=== PATIENT | male | born 1950 | race Caucasian/White ===

== ENCOUNTER → 2021-05-21 | Outpatient (CLI) | payer MEDICARE, OTHER ==
--- NOTE | 2021-05-21 11:28 | Diagnostic Imaging Report ---
INDICATION: Shortness of breath EXAMINATION: Two-view chest 05/21/2021 FINDINGS: There is a marked dextroconvex scoliosis of the thoracic spine. The heart is unremarkable. There is atelectasis at the left lung base with infiltrate not excluded; correlate with symptoms. Remaining lungs clear. No effusions. No pneumothorax. Pulmonary vasculature unremarkable. IMPRESSION: 1. Atelectasis versus infiltrate at the left lung base; correlate with symptoms. Otherwise chronic findings as above. Dictated by: Dictated on workstation # [id number]
== END ==
LOC: RAD 11:00
PROVIDERS: ATTEND Nurse Practitioner Family
DX: R06.02 Shortness of breath (principal)
CPT/HCPCS: 71046

== ENCOUNTER → 2021-06-04 | Outpatient (CLI) | payer MEDICARE, OTHER ==
--- NOTE | 2021-06-04 12:37 | Diagnostic Imaging Report ---
INDICATION: Dyspnea and pneumonia. TECHNIQUE/COMPARISON: PA and lateral views of the chest were obtained with comparison made to the study of 05/21/2021. FINDINGS: The overall heart size and pulmonary vascularity remain within normal limits. There is mild perihilar atelectasis and/or pneumonitis. No consolidation, pneumothorax, or definite pleural fluid is seen. Overall, there has been no adverse change. Thoracic spinal deformity is again noted. IMPRESSION: Perihilar atelectasis and/or pneumonitis without significant change from the previous study. Dictated by: Dictated on workstation # [id number]
== END ==
LOC: RAD
PROVIDERS: ATTEND Nurse Practitioner Family
DX: J18.9 Pneumonia, unspecified organism (principal)
CPT/HCPCS: 71046

== ENCOUNTER → 2021-06-06 | Outpatient (CLI) | payer MEDICARE, OTHER ==
[~2021-06-06] MED LIST: CATHETER FLUSH 10 ML SYR IV PRN; HOLD METFORMIN - RECEIVED CONTRAST 20 ML VIAL IV SCH; IOHEXOL 350 MG/ML 100 ML (OMNIPAQUE 350) VIAL IV ONE; NS 100 ML (IVPB) BAG IV ONE
--- NOTE | 2021-06-06 10:11 | Diagnostic Imaging Report ---
PROCEDURE: CT chest with contrast only. TECHNIQUE: Multiple contiguous axial images were obtained through the chest after administration of intravenous contrast. Auto Exposure Controls were utilized during the CT exam to meet ALARA standards for radiation dose reduction. DATE: June 06, 2021. COMPARISON: Chest radiograph June 04, 2021. May 21, 2021. INDICATION: 70-year-old male, evaluation of pulmonary nodule seen on radiographs. FINDINGS: There is no identified pulmonary nodule. There is no lung mass. There is no focal airspace consolidation. There is no pneumothorax. There is no pleural effusion. The central airways are patent. The heart is not enlarged. There is no pericardial effusion. There are atherosclerotic calcifications. There is no identified pulmonary embolus. There is no identified abnormally enlarged mediastinal, hilar, or axillary lymph node meeting CT size criteria for adenopathy. There is surgical absence of the gallbladder. There are nonobstructing renal stones bilaterally. There is scoliosis. There are multilevel degenerative changes of the spine. There is no identified acute bony abnormality. IMPRESSION: CT CHEST. 1. No pulmonary nodule or lung mass. 2. No identified acute cardiopulmonary abnormality. Dictated by: Dictated on workstation # [id number]
== END ==
LOC: RAD 09:18
PROVIDERS: ATTEND Nurse Practitioner Family
DX: J18.9 Pneumonia, unspecified organism (principal); R91.8 Other nonspecific abnormal finding of lung field; Z87.891 Personal history of nicotine dependence
CPT/HCPCS: 71260

== ENCOUNTER → 2021-09-16 | Outpatient (CLI) | payer MEDICARE, OTHER ==
[~2021-09-16] VITALS: Ht 167.7 cm; Wt 80.0 kg
[~2021-09-16] MED LIST changes: +ACHD5005 PO; -CATHETER FLUSH 10 ML SYR IV PRN; -HOLD METFORMIN - RECEIVED CONTRAST 20 ML VIAL IV SCH; -IOHEXOL 350 MG/ML 100 ML (OMNIPAQUE 350) VIAL IV ONE; -NS 100 ML (IVPB) BAG IV ONE; +NS IV 1000 ML 1,000 ML ONE; +OMEP20CA18 PO; +ONDANSETRON 4 MG/2 ML (SDV) Z0FRAN IVP ONE; +ONDANSETRON 4 MG/2 ML (SDV) Z0FRAN ONE
[2021-09-16 15:03] VITALS: BP 144/79
[2021-09-16 15:20] LABS: BILIRUBIN,URINE NEGATIVE (NEGATIVE); CLARITY,URINE CLEAR; COLOR,URINE YELLOW; GLUCOSE, URINE (UA) NEGATIVE (NEGATIVE); KETONES,URINE 1+ (NEGATIVE); LEUKOCYTE ESTERASE ,URINE NEGATIVE (NEGATIVE); NITRITE,URINE NEGATIVE (NEGATIVE); PROTEIN,URINE NEGATIVE (NEGATIVE)
[2021-09-16 15:29] LABS: BACTERIA,URINE NEGATIVE /HPF
[2021-09-16] MEDS: NS IV 1000 ML 1,000 ML IV SCH ×2 (15:33→16:39)
[2021-09-16 15:35] LABS: HEMATOCRIT 46 % (40-54); HEMOGLOBIN 15.3 g/dL (13.3-17.7); MEAN CORPUSCULAR HEMOGLOBIN 30 pg (25-34); MEAN CORPUSCULAR HGB CONC 33 g/dL (32-36); MEAN CORPUSCULAR VOLUME 92 fL (80-99); MEAN PLATELET VOLUME 9.2 fL (9.0-12.2); PLATELET COUNT 386 10^3/uL (130-400); WHITE BLOOD COUNT 10.3 10^3/uL (4.3-11.0)
[2021-09-16 15:43] LABS: ALBUMIN 4.2 GM/DL (3.2-4.5); POTASSIUM 3.7 MMOL/L (3.6-5.0)
[2021-09-16 15:44] LABS: CALCIUM 9.6 MG/DL (8.5-10.1)
[2021-09-16 15:45] LABS: TOTAL PROTEIN 7.6 GM/DL (6.4-8.2)
[2021-09-16 15:47] LABS: BILIRUBIN,TOTAL 0.5 MG/DL (0.1-1.0)
[2021-09-16 15:49] LABS: CREATININE SERUM 0.89 MG/DL (0.60-1.30)
--- NOTE | 2021-09-16 16:16 | Diagnostic Imaging Report ---
PROCEDURE: CT abdomen without contrast. TECHNIQUE: Multiple contiguous axial images were obtained through the abdomen without the use of intravenous contrast. Auto Exposure Controls were utilized during the CT exam to meet ALARA standards for radiation dose reduction. INDICATION: Back pain. Nausea and vomiting. COMPARISON: None. FINDINGS: The heart is unremarkable. The lung bases are clear. A cyst is seen off the inferior pole of the right kidney measuring 2.6 x 2.4 cm. A small cortical cyst is seen in the inferior pole of the left kidney. No hydronephrosis or renal calculi. The liver, spleen, pancreas, and adrenal glands have a normal appearance. The gallbladder is surgically absent. There is no pathologically enlarged mesenteric or retroperitoneal adenopathy. The included bowel loops are nondilated. There is no free fluid or free air. No acute osseous abnormalities. S-shaped scoliosis of the thoracolumbar spine is seen. There is calcified aortic and iliac atherosclerotic plaque without aneurysm. IMPRESSION: 1. No acute abnormalities are seen in the abdomen. 2. Bilateral renal cysts which are incompletely characterized on this exam. If indicated, further evaluation with contrast-enhanced CT may be considered. Ultrasound of the kidneys could also be performed to further evaluate. 3. S-shaped scoliosis of the thoracolumbar spine. No acute fracture. Dictated by: Dictated on workstation # [id number]
== END ==
LOC: RAD 15:00
PROVIDERS: ATTEND Nurse Practitioner Family
DX: N28.1 Cyst of kidney, acquired (principal); M41.85 Other forms of scoliosis, thoracolumbar region; R11.2 Nausea with vomiting, unspecified
CPT/HCPCS: 36415; 74150; 80053; 81000; 82150; 83690; 85027; 96360; 96361

== ENCOUNTER 2021-09-17 18:19 | Emergency (ER) | payer MEDICARE, OTHER ==
[~2021-09-17] VITALS: Ht 167.7 cm; Wt 80.5 kg
[2021-09-17] MEDS ORDERED: ONDANSETRON 4 MG/2 ML (SDV) Z0FRAN IVP ONE (19:00)
[2021-09-17] MEDS ORDERED: fentaNYL INJ 100 MCG/2 ML AMP IVP ONE (19:00)
--- NOTE | 2021-09-17 19:12 | ED General ---
General Stated Complaint: ABD / BACK PAIN - VOMITING Nursing Triage Note: Pt reports having N/V, low back pain and upper abdominal pain. Source of Information: Patient Exam Limitations: No Limitations History of Present Illness Date Seen by Provider: Sep 17, 2021 Time Seen by Provider: 18:32 Initial Comments This 70-year-old gentleman presents to the emergency room with complaints of lower back pain had rather intense nausea as well as a vague sense of abdominal pain that is not particularly tender to palpation. This is day 4 of experiencing the symptoms. He was seated by Dr. HARDING and sent to the hospital for a thorough outpatient work-up which included labs and CT of the abdomen and pelvis without contrast. Work-up was unremarkable. He was treated with injections and IV fluids and Zofran. He was prescribed Zofran as well. He was able to eat Jell- O and toast today and drink Gatorade. However, he has had escalating pain in the lower back and nausea since he last ate and drank around 15:00. He has somewhat good distress at this time. He denies any vomiting, diarrhea, or constipation. H e reports normal bowel movements over the past few days. He is status post cholecystectomy. Palpation of the upper abdomen does not necessarily cause pain but does worsen nausea. Allergies and Home Medications Allergies Coded Allergies: No Allergy Information Available (Unverified , 06/06/21) Patient Home Medication List Home Medication List Reviewed: Yes Review of Systems Review of Systems Constitutional: no symptoms reported EENTM: no symptoms reported Respiratory: no symptoms reported Cardiovascular: no symptoms reported Gastrointestinal: see HPI Genitourinary: no symptoms reported Musculoskeletal: no symptoms reported Skin: no symptoms reported Psychiatric/Neurological: No Symptoms Reported Hematologic/Lymphatic: No Symptoms Reported Immunological/Allergic: no symptoms reported Past Mpqqtol-Dghbvv-Nsgsos Hx Patient Social History Tobacco Use?: No Use of E-Cig and/or Vaping dev: No Substance use?: No Alcohol Use?: No Past Medical History Surgeries: Yes Gallbladder Respiratory: No Cardiac: Yes High Cholesterol Neurological: No Genitourinary: No Gastrointestinal: No Musculoskeletal: No Endocrine: No HEENT: No Cancer: No Did You Recieve Any Treatments: No Psychosocial: No Integumentary: No Physical Exam Vital Signs Vital Signs - First Documented 09/17/21 18:42 Temp 36.7 Pulse 51 Resp 20 B/P (MAP) 138/116 (123) Pulse Ox 98 O2 Delivery Room Air Capillary Refill : Height, Weight, BMI Height: '" Weight: lbs. oz. kg; BMI Method: General Appearance: WD/WN, Mild Distress HEENT: PERRL/EOMI, Normal ENT Inspection Neck: Normal Inspection Respiratory: Lungs Clear, Normal Breath Sounds, No Accessory Muscle Use Cardiovascular: Regular Rate, Rhythm, No Edema, No Murmur Gastrointestinal: Normal Bowel Sounds; No No Organomegaly, No No Pulsatile Mass; Soft, Abnormal Bowel Sounds (Decreased); No Distended, No Mass Extremity: Normal Inspection, No Pedal Edema Neurologic/Psychiatric: Alert, Oriented x3, No Motor/Sensory Deficits, Normal Mood/Affect, armhole baster hand II-XII Norm as Tested Skin: Normal Color, Warm/Dry Progress/Results/Core Measures Suspected Sepsis SIRS Temperature: Pulse: Respiratory Rate: 23 Laboratory Tests 09/17/21 19:20: White Blood Count 12.9H Blood Pressure 138 /116 Mean: Laboratory Tests 09/17/21 19:20: Creatinine 0.90, Platelet Count 378, Total Bilirubin 0.5 Results/Orders Lab Results Laboratory Tests Test 09/17/21 19:20 09/17/21 21:31 Range/Units White Blood Count 12.9 H 4.3-11.0 10^3/uL Red Blood Count 4.85 4.30-5.52 10^6/uL Hemoglobin 14.8 13.3-17.7 g/dL Hematocrit 45 40-54 % Mean Corpuscular Volume 92 80-99 fL Mean Corpuscular Hemoglobin 31 25-34 pg Mean Corpuscular Hemoglobin Concent 33 32-36 g/dL Red Cell Distribution Width 12.5 10.0-14.5 % Platelet Count 378 130-400 10^3/uL Mean Platelet Volume 9.6 9.0-12.2 fL Immature Granulocyte % (Auto) 1 % Neutrophils (%) (Auto) 82 H 42-75 % Lymphocytes (%) (Auto) 10 L 12-44 % Monocytes (%) (Auto) 7 0-12 % Eosinophils (%) (Auto) 0 0-10 % Basophils (%) (Auto) 1 0-10 % Neutrophils # (Auto) 10.6 H 1.8-7.8 10^3/uL Lymphocytes # (Auto) 1.3 1.0-4.0 10^3/uL Monocytes # (Auto) 0.8 0.0-1.0 10^3/uL Eosinophils # (Auto) 0.0 0.0-0.3 10^3/uL Basophils # (Auto) 0.1 0.0-0.1 10^3/uL Immature Granulocyte # (Auto) 0.1 0.0-0.1 10^3/uL Sodium Level 141 135-145 MMOL/L Potassium Level 3.8 3.6-5.0 MMOL/L Chloride Level 104 98-107 MMOL/L Carbon Dioxide Level 26 21-32 MMOL/L Anion Gap 11 5-14 MMOL/L Blood Urea Nitrogen 12 7-18 MG/DL Creatinine 0.90 0.60-1.30 MG/DL Estimat Glomerular Filtration Rate 91 BUN/Creatinine Ratio 13 Glucose Level 121 H 70-105 MG/DL Calcium Level 9.3 8.5-10.1 MG/DL Corrected Calcium 9.3 8.5-10.1 MG/DL Total Bilirubin 0.5 0.1-1.0 MG/DL Aspartate Amino Transf (AST/SGOT) 43 H 5-34 U/L Alanine Aminotransferase (ALT/SGPT) 40 0-55 U/L Alkaline Phosphatase 63 40-136 U/L C-Reactive Protein High Sensitivity 0.82 H 0.00-0.50 MG/DL Total Protein 7.0 6.4-8.2 GM/DL Albumin 4.0 3.2-4.5 GM/DL Lipase 15 8-78 U/L Urine Color YELLOW Urine Clarity CLEAR Urine pH 6.5 5-9 Urine Specific Franklin <=1.005 1.016-1.022 Urine Protein NEGATIVE NEGATIVE Urine Glucose (UA) NEGATIVE NEGATIVE Urine Ketones NEGATIVE NEGATIVE Urine Nitrite NEGATIVE NEGATIVE Urine Bilirubin NEGATIVE NEGATIVE Urine Urobilinogen 0.2 < = 1.0 MG/DL Urine Leukocyte Esterase NEGATIVE NEGATIVE Urine RBC (Auto) NEGATIVE NEGATIVE Urine RBC NONE /HPF Urine WBC NONE /HPF Urine Squamous Epithelial Cells NONE /HPF Urine Crystals NONE /LPF Urine Bacteria NEGATIVE /HPF Urine Casts NONE /LPF Urine Mucus NEGATIVE /LPF Urine Culture Indicated NO My Orders Orders - JACKI CALLES MD Cbc With Automated Diff (09/17/21 18:32) Comprehensive Metabolic Panel (09/17/21 18:32) Hs C Reactive Protein (09/17/21 18:32) Ua Culture If Indicated (09/17/21 18:32) Ed Iv/Invasive Line Start (09/17/21 18:32) Lipase (09/17/21 18:32) Ondansetron Injection (Zofran Injectio (09/17/21 19:00) Fentanyl Inj (Sublimaze Injection) (09/17/21 19:00) Ct Angio Abdomen/Pelv W (09/17/21 20:14) Iohexol Injection (Omnipaque 350 Mg/Ml 1 (09/17/21 20:30) Received Contrast (Hold Metformin- Contr (09/17/21 20:30) Ns (Ivpb) (Sodium Chloride 0.9% Ivpb Bag (09/17/21 20:30) Ns Iv 500 Ml (Sodium Chloride 0.9%) (09/17/21 20:30) Bladder Scan (09/17/21 21:39) Hydrocodone/Apap 5/325 Tablet (Lortab 5 (09/17/21 22:00) Famotidine Injection (Pepcid Injection) (09/17/21 22:00) Rx-Hydrocodone/Apap 5-325 Mg (Rx-Vicodin (09/17/21 22:45) Medications Given in ED Current Medications Medications Dose Ordered Sig/Tayler Route Start Time Stop Time Status Last Admin Dose Admin Acetaminophen/ Hydrocodone Bitart 1 ea ONCE ONCE PO 09/17/21 22:00 09/17/21 22:01 DC 09/17/21 22:16 1 EA Famotidine 20 mg ONCE ONCE IVP 09/17/21 22:00 09/17/21 22:01 DC 09/17/21 22:16 20 MG Fentanyl Citrate 50 mcg ONCE ONCE IVP 09/17/21 19:00 09/17/21 19:01 DC 09/17/21 19:27 50 MCG Iohexol 100 ml ONCE ONCE IV 09/17/21 20:30 09/17/21 20:32 DC 09/17/21 20:30 85 ML Ondansetron HCl 8 mg ONCE ONCE IVP 09/17/21 19:00 09/17/21 19:01 DC 09/17/21 19:25 8 MG Sodium Chloride 100 ml ONCE ONCE IV 09/17/21 20:30 3/1/22 20:32 DC 09/17/21 20:31 80 ML Sodium Chloride 500 ml @ 0 mls/hr Q0M ONCE IV 09/17/21 20:30 09/17/21 20:32 DC 09/17/21 21:00 500 MLS/HR Vital Signs/I&O 09/17/21 09/17/21 18:42 18:56 Temp 36.7 36.7 Pulse 51 Resp 20 23 B/P (MAP) 138/116 (123) Pulse Ox 98 98 O2 Delivery Room Air Capillary Refill : Progress Note #1: Time: 19:11 Progress Note Patient is being treated with fentanyl and Zofran. Repeat labs are pending. Labs will be used to help determine next steps in his evaluation. Progress Note #2: Time: 20:20 Progress Note Patient was feeling much better after treatment. He was reexamined and found to have some tenderness in the right upper quadrant that was not well elicited previously. Back was nontender to palpation. CT is being repeated this time as an angiogram to evaluate his aorta and mesenteric perfusion. Progress Note #3: Time: 22:38 Progress Note It was noted that patient had a significant amount of urine in his bladder on CT scan. I had him stand up and void his bladder in the restroom. He was able to void 400 mL. Bladder scan was then determined not necessary. Patient elaborated that when his back pain was severe, he also had burning pain radiating down both legs to his feet. This sounded radicular in nature. He states he has an MRI scheduled within the next several days to evaluate this further. No definite etiology for his pain was identified. I did discuss the potential for needing endoscopy to evaluate for gastric or duodenal causes of his pain. He was given Pepcid in the ER. Hydrocodone was given for pain that was starting to rebound. He tolerated oral hydrocodone without difficulty. He is being sent home with a take-home bottle of hydrocodone. Diagnostic Imaging Diagonstic Imaging: CT Plain Films/CT/US/NM/MRI: abdomen, pelvis Comments CT angiogram abdomen and pelvis viewed by me and report reviewed. See report below: NAME: LI MILTON MED REC#: [id number] PT STATUS: REG ER : 1950 PHYSICIAN: JACKI CALLES MD ADMIT DATE: 09/17/21/ER Signed Date of Exam:09/17/21 CT ANGIO ABDOMEN/PELV W PROCEDURE: CT Angio Abdomen/Pelvis with. TECHNIQUE: Multiple contiguous axial images were obtained through the abdomen and pelvis after the uneventful bolus administration of intravenous contrast. Sagittal and coronal MIP reconstructions with then performed. All CT scans use one or more of the following dose optimizing techniques: automated exposure control, MA and/or KvP adjustment based on patient size and exam type or iterative reconstruction. INDICATION: Abdominal pain COMPARISON: CT abdomen and pelvis from 09/16/2021. FINDINGS: Abdominal aorta is normal in caliber and there is no dissection. A moderate amount of atherosclerotic plaquing is present in the distal abdominal aorta. The celiac, superior mesenteric, bilateral renal and inferior mesenteric arteries are all patent. Lung bases are clear. No pericardial or pleural effusion. No free intraperitoneal air or fluid. The liver has no concerning abnormality. Cholecystectomy. No biliary duct dilatation. The spleen and pancreas are normal. No adrenal mass. No renal mass or obstructive uropathy. No concerning renal mass. Stable cysts in the lower pole of each kidney. Urinary bladder is normally filled. Prostamegaly is unchanged. The stomach is decompressed. No hyperdensities within the lumen of the stomach. No dilated loops of bowel. No pericolonic inflammatory change. Sigmoid colon diverticulosis without diverticulitis. No abdominal or pelvic lymphadenopathy. Severe scoliosis in the lumbar spine is again noted. IMPRESSION: 1. Normal caliber abdominal aorta without dissection. 2. No features of active gastrointestinal bleed. Sigmoid colon diverticulosis without diverticulitis. Dictated by: Dictated on workstation # [id number] Dict: 09/17/212053 Trans: 09/17/212230 [facility] [id number] Interpreted by: MODE HERNANDEZ MD Electronically signed by: MODE HERNANDEZ MD 09/17/212230 Departure Impression Primary Impression: Lower back pain Qualified Codes: M54.42 - Lumbago with sciatica, left side; M54.41 - Lumbago with sciatica, right side Additional Impressions: Bilateral lumbar radiculopathy Generalized abdominal pain Nausea & vomiting Qualified Codes: R11.2 - Nausea with vomiting, unspecified Disposition: HOME, SELF-CARE Condition: Improved Departure-Patient Inst. Referrals: KIMBERLY HARDING MD (PCP/Family) Primary Care Physician Patient Instructions: Abdominal Pain, Adult ED, Radiculopathy Add. Discharge Instructions: Start with a noncarbonated clear liquid diet and gradually advance her diet with small quantities of bland food as tolerated. Avoid the following: Eating large meals, eating close to bedtime, caffeine, carbonation, chocolate, citrus fruits and juices, tomato products, mints, alcohol, tobacco, NSAID medication such as ibuprofen or naproxen, fatty or greasy foods, spicy foods, or anything else that irritates your stomach. Start omeprazole daily as prescribed. Use hydrocodone as prescribed if needed for pain. You may wish to use a stool softener such as Colace when you take hydrocodone to prevent constipation. Follow through with the MRI as ordered and scheduled by Dr. Harding. The exact cause of your abdominal pain and nausea is uncertain. Upper endoscopy to evaluate your stomach and duodenum may be helpful in evaluating the cause. Please discuss this with Dr. Harding. In the meantime, if you have symptoms you cannot manage at home or if you you develop true weakness of your legs, difficulty controlling bowels or bladder, or numbness of the groin, return to the emergency room promptly. Call with questions or concerns. Return to the ER if you have any other urgent problems or concerns. Scripts Hydrocodone/Acetaminophen (Hydrocodone-Acetamin 5-325 mg) 1 Each Tablet 1 TAB PO Q4H PRN for PAIN-MODERATE (5-7), #10 TAB Prov: JACKI CALELS MD 09/17/21 Omeprazole (Omeprazole) 20 Mg Capsule. 20 MG PO DAILY, #30 CAP Prov: JACKI CALLES MD 09/17/21 Copy Copies To 1: KIMBERLY HARDING MD, JOSHUA T MD Sep 17, 2021 19:12
[2021-09-17 19:28] LABS: BASOPHILS # (AUTO) 0.1 10^3/uL (0.0-0.1); BASOPHILS % (AUTO) 1 % (0-10); EOSINOPHILS % (AUTO) 0 % (0-10); HEMATOCRIT 45 % (40-54); HEMOGLOBIN 14.8 g/dL (13.3-17.7); LYMPHOCYTES # (AUTO) 1.3 10^3/uL (1.0-4.0); LYMPHOCYTES % (AUTO) 10 % (12-44); MEAN CORPUSCULAR HEMOGLOBIN 31 pg (25-34); MEAN CORPUSCULAR HGB CONC 33 g/dL (32-36); MEAN CORPUSCULAR VOLUME 92 fL (80-99); MEAN PLATELET VOLUME 9.6 fL (9.0-12.2); MONOCYTES # (AUTO) 0.8 10^3/uL (0.0-1.0); MONOCYTES % (AUTO) 7 % (0-12); NEUTROPHILS # (AUTO) 10.6 10^3/uL (1.8-7.8); NEUTROPHILS % (AUTO) 82 % (42-75); PLATELET COUNT 378 10^3/uL (130-400); WHITE BLOOD COUNT 12.9 10^3/uL (4.3-11.0)
[2021-09-17 20:00] LABS: BILIRUBIN,TOTAL 0.5 MG/DL (0.1-1.0); CALCIUM 9.3 MG/DL (8.5-10.1); CREATININE SERUM 0.9 MG/DL (0.60-1.30); POTASSIUM 3.8 MMOL/L (3.6-5.0)
[2021-09-17] MEDS ORDERED: NS 100 ML (IVPB) BAG IV ONE (20:30)
[2021-09-17] MEDS ORDERED: NS IV 500 ML 500 ML IV ONE (20:30)
[2021-09-17] MEDS ORDERED: IOHEXOL 350 MG/ML 100 ML (OMNIPAQUE 350) VIAL IV ONE (20:30)
[2021-09-17] MEDS ORDERED: HOLD METFORMIN - RECEIVED CONTRAST 20 ML VIAL IV SCH (20:30)
--- NOTE | 2021-09-17 21:01 | Diagnostic Imaging Report ---
PROCEDURE: CT Angio Abdomen/Pelvis with. TECHNIQUE: Multiple contiguous axial images were obtained through the abdomen and pelvis after the uneventful bolus administration of intravenous contrast. Sagittal and coronal MIP reconstructions with then performed. All CT scans use one or more of the following dose optimizing techniques: automated exposure control, MA and/or KvP adjustment based on patient size and exam type or iterative reconstruction. INDICATION: Abdominal pain COMPARISON: CT abdomen and pelvis from 09/16/2021. FINDINGS: Abdominal aorta is normal in caliber and there is no dissection. A moderate amount of atherosclerotic plaquing is present in the distal abdominal aorta. The celiac, superior mesenteric, bilateral renal and inferior mesenteric arteries are all patent. Lung bases are clear. No pericardial or pleural effusion. No free intraperitoneal air or fluid. The liver has no concerning abnormality. Cholecystectomy. No biliary duct dilatation. The spleen and pancreas are normal. No adrenal mass. No renal mass or obstructive uropathy. No concerning renal mass. Stable cysts in the lower pole of each kidney. Urinary bladder is normally filled. Prostamegaly is unchanged. The stomach is decompressed. No hyperdensities within the lumen of the stomach. No dilated loops of bowel. No pericolonic inflammatory change. Sigmoid colon diverticulosis without diverticulitis. No abdominal or pelvic lymphadenopathy. Severe scoliosis in the lumbar spine is again noted. IMPRESSION: 1. Normal caliber abdominal aorta without dissection. 2. No features of active gastrointestinal bleed. Sigmoid colon diverticulosis without diverticulitis. Dictated by: Dictated on workstation # [id number]
[2021-09-17 21:33] LABS: BILIRUBIN,URINE NEGATIVE (NEGATIVE); CLARITY,URINE CLEAR; COLOR,URINE YELLOW; GLUCOSE, URINE (UA) NEGATIVE (NEGATIVE); KETONES,URINE NEGATIVE (NEGATIVE); LEUKOCYTE ESTERASE ,URINE NEGATIVE (NEGATIVE); NITRITE,URINE NEGATIVE (NEGATIVE); PH,URINE 6.5 (5-9); PROTEIN,URINE NEGATIVE (NEGATIVE)
[2021-09-17] MEDS ORDERED: HYDROcodone/APAP 5 MG/325 MG (LORTAB) TAB PO ONE (22:00)
[2021-09-17] MEDS ORDERED: FAMOTIDINE 20MG/2ML IV (PEPCID) IVP ONE (22:00)
[2021-09-17 22:24] LABS: BACTERIA,URINE NEGATIVE /HPF
[2021-09-17] MEDS ORDERED: OMEP20CA18 PO (22:45)
[2021-09-17] MEDS ORDERED: ACHD5005 PO (22:45)
[2021-09-17 23:05] VITALS: BP 127/79
== END 2021-09-17 23:05 | disposition home or self-care (01) ==
LOC: EDUNIT# 18:19 → ER 18:21
DX: M54.16 Radiculopathy, lumbar region (principal); R10.84 Generalized abdominal pain; R11.2 Nausea with vomiting, unspecified
CPT/HCPCS: 36415; 74174; 80053; 81000; 83690; 85025; 86141

== ENCOUNTER → 2021-09-24 | Outpatient (CLI) | payer MEDICARE, OTHER ==
[~2021-09-24] MED LIST changes: -NS IV 1000 ML 1,000 ML ONE; -ONDANSETRON 4 MG/2 ML (SDV) Z0FRAN IVP ONE; -ONDANSETRON 4 MG/2 ML (SDV) Z0FRAN ONE
--- NOTE | 2021-09-24 12:05 | Diagnostic Imaging Report ---
CLINICAL INDICATIONS: Patient with chronic low back pain and history of scoliosis. EXAM: MRI of the lumbar spine performed without IV contrast. Sequences include sagittal T2, sagittal T2 fat-sat, coronal T2, and axial T2. COMPARISON: None. FINDINGS: There is a 2.6 cm cyst extending from the inferior aspect of the right kidney. There are also cysts involving left kidney which are smaller in size. There is no acute lumbar spine fracture. There are multiple levels of Modic type I degenerative signal changes anteriorly throughout the lumbar spine. There is small amount of Modic type II degenerative signal changes anteriorly seen at the L2-L4 levels. There is roughly 51 degrees of levorotoscoliosis and lumbar spine with apex at the L3 vertebral body level. There are associated hypertrophic far lateral disk spurs at the L2-L4 levels. There is no significant paraspinal soft tissue abnormality. There is tortuosity of the distal thoracic spinal cord and cauda equina nerve roots. Conus medullaris tip is seen at the upper L2 vertebral body level. T12-L1: There is no significant central canal or neural foramen narrowing. There is no significant posterior disk bulge. L1-L2: There is no significant posterior disk bulge. There is no significant central canal or neural foramen narrowing. L2-L3: There is hypertrophic far lateral disk spurs and anterior disk spurs. There is moderate loss of disk space height most pronounced involving the right side. There is no significant left neural foramen narrowing. There is moderate right neural foramen narrowing. There is mild central canal narrowing due to facet arthropathy and scoliosis. L3-L4: There are hypertrophic far lateral disk spurs. There is no significant left neural foramen narrowing. There is moderate right neural foramen narrowing. There is mild central canal narrowing due to scoliosis and bony hypertrophy. L4-L5: There is severe bilateral facet arthropathy with hypertrophic changes on the right. There is mild left neural foramen narrowing. There is moderate right neural foramen narrowing. There is no significant central canal stenosis. There is no significant posterior disk bulge. L5-S1: There is no significant disk bulge. There is mild bilateral facet arthropathy. There is mild left neural foramen narrowing. There is no significant right neural foramen narrowing. IMPRESSION: There is severe levorotoscoliosis and lumbar spine and moderate multilevel lumbar spine degenerative disease, as described above. Dictated by: Dictated on workstation # [id number]
== END ==
LOC: RAD 08:45
PROVIDERS: ATTEND Nurse Practitioner Family
DX: M47.817 Spondylosis without myelopathy or radiculopathy, lumbosacral region (principal); M51.27 Other intervertebral disc displacement, lumbosacral region; M48.07 Spinal stenosis, lumbosacral region; M41.86 Other forms of scoliosis, lumbar region
CPT/HCPCS: 72148